=== PATIENT | female | born 1980 | race Caucasian/White ===

== ENCOUNTER 2018-07-08 14:38 | Emergency (ER) | payer MEDICAID ==
[2018-07-08] MEDS ORDERED: GABAPENTIN 100 MG CAPSULE PO STA (15:00)
--- NOTE | 2018-07-08 15:03 | ED Physician Documentation ---
History of Present Illness - Stated complaint Stated Complaint: NECK PX - Chief complaint Chief Complaint: General - History obtained from History obtained from: Patient, Family - History of Present Illness Timing: Other (This is a 37-year-old woman who 3 weeks ago started to get neck pain after her daughter was kind of laying on her side. Since then she continues to have neck pain on the right radiating into the right shoulder and bicep with a stabbing pain in the bicep and partial numbness across the thumb side of the forearm and hand.) Review of Systems Constitutional: denies: Fever, Chills Cardiac: denies: Chest pain / pressure, Palpitations Respiratory: denies: Dyspnea, Cough GI: denies: Abdominal Pain, Nausea, Vomiting PD PAST MEDICAL HISTORY - Present Medications Home Medications: Ambulatory Orders Medication Instructions Recorded Confirmed Cyclobenzaprine [Flexeril] 10 mg PO TID PRN #20 tablet 07/08/18 Gabapentin [Neurontin] 300 mg PO TID #60 capsule 07/08/18 Levonorgestrel-Ethin Estradiol 07/08/18 [[place]-28 Tablet] predniSONE [Deltasone] 20 mg PO [id number] #21 tab 07/08/18 - Allergies Allergies/Adverse Reactions: Allergies Allergy/AdvReac Type Severity Reaction Status Date / Time ciprofloxacin [From Cipro] Allergy Unknown Verified 07/08/18 14:43 latex AdvReac Rash Verified 07/08/18 14:43 PD ED PE NORMAL - Vitals Vital signs reviewed: Yes - General General: Alert and oriented X 3, No acute distress - Neck Neck: Supple, no meningeal sign, No bony TTP, Other (Mild right-sided neck tenderness with full range of motion) - Neuro Neuro: Other (Slightly decreased sensation in the right C6 distribution with normal watch leader strength, thumb extension, interosseous strength, flexion and extension of the wrist. Her upper extremity reflexes are diminished throughout but seems symmetric.) - Psych Psych: Normal mood, Normal affect Results - Vitals Vitals: Vital Signs - 24 hr 07/08/18 14:43 Heart Rate 68 Respiratory 16 Rate Blood Pressure 132/94 H O2 Saturation 100 Oxygen O2 Source Room air PD MEDICAL DECISION MAKING - ED course ED course: This is a 37-year-old woman with an acute cervical radiculopathy. 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 The patient and family were counseled as to the diagnosis and need for follow- up. I counseled the patient with regard to signs and symptoms that would necessitate an urgent reevaluation in the emergency department. They understand they are welcome to return at any time if worse or if not improving as expected. This document was made in part using voice recognition software. While efforts are made to proofread this documents, sound alike and grammatical errors may occur. Departure - Departure Disposition: 01 Home, Self Care Clinical Impression: Cervical radiculopathy at C6 Condition: Good Record reviewed to determine appropriate education?: Yes Instructions: ED Cervical Radiculopathy Follow-Up: [facility] [Provider Group] Prescriptions: Cyclobenzaprine [Flexeril] 10 mg PO TID PRN #20 tablet PRN Reason: Spasms Gabapentin [Neurontin] 300 mg PO TID #60 capsule predniSONE [Deltasone] 20 mg PO [id number] #21 tab Comments: Your blood pressure was elevated today on check into the emergency department. This does not mean that you have hypertension, it is a common phenomenon to come to the emergency department and have elevated blood pressure. I recommend that you see your primary care physician within the week to have it rechecked when you are feeling better.
[2018-07-08 15:26] VITALS: BP 130/92
== END 2018-07-08 15:26 | disposition home or self-care (01) ==
LOC: ED 14:38
DX: M54.12 Radiculopathy, cervical region (principal); R03.0 Elevated blood-pressure reading, without diagnosis of hypertension
CPT/HCPCS: 99283; A9270